=== PATIENT | male | born 1970 | race Caucasian/White ===

== ENCOUNTER 2016-12-22 12:34 | Emergency (ER) | payer BC ==
[~2016-12-22] VITALS: Ht 188 cm; Wt 113.5 kg
[2016-12-22 12:35] VITALS: BP 165/94; PULSE 106; RESP 20; TEMP 98; O2SAT 97
--- NOTE | 2016-12-23 08:22 | PD ---
HPI Chief Complaint: Edema Time Seen by Provider: 08:17 Travel History International Travel<30 days: Yes Contact w/Intl Traveler<30days: Yes Name of Country Traveled to: [facility] Traveled to known affect area: No History of Present Illness HPI 46-year-old occasional female presents the emergency Department with hard swollen area over the left dorsal wrist. He states no pain, erythema, drainage , or history of IV drug use. Patient was hospitalized and released proximal to 2 weeks ago for cellulitis with sepsis, and states he did have an IV in his left hand. Patient states he noted this morning that the vein in this area over the left wrist was swollen, and felt hard to the touch. Again the patient has no pain whatsoever. Patient has no known drug allergies. [facility] Social History Alcohol Use: Yes Tobacco Use: No Substance Use: No Allergies-Medications (Allergen,Severity, Reaction): Coded Allergies: No Known Allergies (Unverified , 12/23/16) Review of Systems Except as stated in HPI: all other systems reviewed are Neg General / Constitutional: No: Fever Eyes: No: Visual changes HENT: No: Headaches Cardiovascular: No: Chest Pain or Discomfort Respiratory: No: Shortness of Breath Gastrointestinal: No: Abdominal Pain Genitourinary: No: Dysuria Musculoskeletal: No: Pain Skin: No Rash Neurologic: No: Weakness Psychiatric: No: Depression Endocrine: No: Polydipsia Hematologic/Lymphatic: No: Easy Bruising Physical Exam Narrative GENERAL: Patient is a no acute distress. SKIN: Warm and dry. Normal color. Normal turgor. Patient does have a firm questionable swollen vein over the left dorsal ulnar wrist, without any erythema or signs of puncture wound, signs of lymphangitis, or other signs of cellulitis. HEAD: Atraumatic. Normocephalic. EYES: Pupils equal and round. No scleral icterus. No injection or drainage. ENT: No nasal bleeding or discharge. Mucous membranes pink and moist. Pharynx is normal. NECK: Trachea midline. Neck is supple. CARDIOVASCULAR: Regular rate and rhythm. RESPIRATORY: No accessory muscle use. Clear to auscultation. Breath sounds equal bilaterally. MUSCULOSKELETAL: Extremities without clubbing, cyanosis, or edema. No obvious deformities. Patient has full range of motion in the left wrist without pain. Neurovascular exam of the left hand is normal. NEUROLOGICAL: Awake and alert. No obvious cranial nerve deficits. Motor grossly within normal limits. Five out of 5 muscle strength in the arms and legs. Normal speech. PSYCHIATRIC: Appropriate mood and affect; insight and judgment normal. Data Data Last Documented VS Vital Signs Date Time Temp Pulse Resp B/P Pulse Ox O2 Delivery O2 Flow Rate FiO2 12/22/16 12:35 98.0 106 20 165/94 97 Room Air MDM Medical Decision Making Medical Screen Exam Complete: Yes Emergency Medical Condition: No Medical Record Reviewed: Yes Differential Diagnosis Scarring of the left dorsal wrist pain, phlebitis, possible superficial venous clot. Narrative Course A medical screening exam was performed: At the time of evaluation the presenting medical condition was determined not to be of an emergent nature. The patient was given the option of receiving additional care, but declined. Patient was given options for additional community resources from which to obtain care. The Patient Has Been advised to seek medical attention for their presenting complaint. The patient has been advised to return to the ER at any time if an emergent condition develops. Disposition: 07 EDGO-ED USE ONLY Condition: Stable David Genao Dec 23, 2016 08:22
== END 2016-12-22 14:08 | disposition left against medical advice (07) ==
LOC: NEPB 12:34
DX: M25.432 Effusion, left wrist (principal)
CPT/HCPCS: 99281